=== PATIENT | female | born 1975 | race American Indian/Alaskan Native ===

== ENCOUNTER 2017-06-14 12:51 | Emergency (ER) | payer SELFPAY ==
[2017-06-14] MEDS ORDERED: NORCO 5/325 PO ONE (15:08)
--- NOTE | 2017-06-14 15:47 | XRay Report ---
FINAL REPORT PROCEDURE: XR SPINE LUMBOSACRAL 2-3V TECHNIQUE: Lumbar spine radiographs, including AP, lateral, and lumbosacral spot views. CPT 16960 HISTORY: low back pain COMPARISON: No prior studies are available for comparison. FINDINGS: Alignment: Normal. Vertebral body heights/Disk spaces: Normal. Fracture(s): None. Facets: Normal. Bone mineralization: Normal. Incidental note is made of a 6 millimeter metallic radiopaque round density in the right upper quadrant IMPRESSION: Unremarkable lumbar spine. A 6 millimeter metallic foreign body in the right upper quadrant may represent an artifact versus an ingested foreign body. Supine and upright views of abdomen are recommended for further evaluation..
--- NOTE | 2017-06-14 16:12 | Emergency Department Report ---
ED Back Pain/Injury HPI - General Chief Complaint: Back Pain/Injury Stated Complaint: BACK PAIN Time Seen by Provider: 06/14/17 14:59 Source: patient Limitations: No Limitations - History of Present Illness Initial Comments: This is a 42 y.o. female presents with low back pain radiating to right buttock that started today. Patient states she was doing situps and heard a pop and fell back. She is in the and was given ibuprofen 1800 mg once and brought to ER. She has a history of back pain from herniated disc or bulging disc. she is unsure of diagnosis but haven't had issues with back in a while. Denies numbness, tingling, discoloration, and weakness. Admits to having trouble sitting up and bearing weight to right lower extremity. MD Complaint: back pain -: This afternoon Similar Symptoms Previously: No Place: work Radiation: right leg Severity: severe Severity scale (0 -10): 8 Quality: sharp, aching Consistency: constant Improves With: medication Worsens With: movement, sitting upright, walking Context: bending (doing situps) Associated Symptoms: denies other symptoms. denies: confusion, weakness, chest pain, numbness, difficulty walking, cough, difficulty urinating, diaphoresis, incontinence, fever/chills, constipation, headaches, abdominal pain, loss of appetite, malaise, nausea/vomiting, rash, seizure, shortness of breath, syncope Treatments Prior to Arrival: NSAIDS (ibuprofen 1800 mg) - Related Data Previous Rx's Medication Instructions Recorded Last Taken Type Cyclobenzaprine HCl [Flexeril 5 MG 5 mg PO TID #20 tab 06/14/17 Unknown Rx TAB] Ibuprofen 800 mg PO Q6H PRN #30 tablet 06/14/17 Unknown Rx Allergies Allergy/AdvReac Type Severity Reaction Status Date / Time No Known Allergies Allergy Unverified 06/14/17 12:59 ED Review of Systems ROS: Stated complaint: BACK PAIN Other details as noted in HPI Constitutional: no symptoms reported, see HPI. denies: chills, diaphoresis, fever, malaise, weakness Respiratory: denies: cough, shortness of breath, wheezing Cardiovascular: denies: chest pain, palpitations Gastrointestinal: denies: abdominal pain, nausea, diarrhea Musculoskeletal: back pain (low back pain radiating to right buttock), arthralgia ED Past Medical Hx - Past Medical History Previous Medical History?: Yes Hx Asthma: Yes Additional medical history: Gallstones - Surgical History Past Surgical History?: Yes Additional Surgical History: partial hysterectomy, Tubaligation, Jaw surgery - Social History Smoking Status: Current Every Day Smoker Substance Use Type: Alcohol, Marijuana, Prescribed - Medications Home Medications: Home Medications Medication Instructions Recorded Confirmed Last Taken Type Cyclobenzaprine HCl [Flexeril 5 MG 5 mg PO TID #20 tab 06/14/17 Unknown Rx TAB] Ibuprofen 800 mg PO Q6H PRN #30 tablet 06/14/17 Unknown Rx ED Physical Exam - General Limitations: No Limitations General appearance: alert, in no apparent distress - Respiratory Respiratory exam: Present: normal lung sounds bilaterally. Absent: respiratory distress - Cardiovascular Cardiovascular Exam: Present: regular rate, normal rhythm. Absent: systolic murmur, diastolic murmur, rubs, gallop - GI/Abdominal GI/Abdominal exam: Present: soft, normal bowel sounds - Back Exam Back exam: Present: tenderness, CVA tenderness (R), CVA tenderness (L), muscle spasm, vertebral tenderness (tenderness on palpation of vertebra bilaterally, positive straight leg on right) - Neurological Exam Neurological exam: Present: alert, oriented X3 - Skin Skin exam: Present: warm, dry, intact, normal color. Absent: rash ED Course Vital Signs 06/14/17 12:59 Temperature 98.3 F Pulse Rate 89 Respiratory 16 Rate Blood Pressure 126/72 O2 Sat by Pulse 95 Oximetry ED Medical Decision Making - Radiology Data Radiology results: image reviewed L Spine Xray IMPRESSION: Unremarkable lumbar spine. A 6 millimeter metallic foreign body in the right upper quadrant may represent an artifact versus an ingested foreign body. Supine and upright views of abdomen are recommended for further evaluation.. Abdomen Xray IMPRESSION: Re-demonstration of 6 millimeter round metallic foreign body projecting over the right mid to upper abdomen. Is uncertain this is intra-abdominal or abdominal wall. Ingested foreign bodies not excluded. Lateral view of the abdomen may be of benefit for further delineating whether this is intra-abdominal or in the abdominal wall. - Medical Decision Making 42 y.o. female presents with low back pain. She heard a pop while doing situps and fell back. She took three 600 mg ibuprofen. Unremarkable lumbar spine. A 6 millimeter metallic foreign body in the right upper quadrant may represent an artifact versus an ingested foreign body. Supine and upright views of abdomen are recommended for further evaluation.. Abdomen Xray IMPRESSION: Re-demonstration of 6 millimeter round metallic foreign body projecting over the right mid to upper abdomen. Is uncertain this is intra-abdominal or abdominal wall. Ingested foreign bodies not excluded. Lateral view of the abdomen may be of benefit for further delineating whether this is intra-abdominal or in the abdominal wall. Tramadol 50 mg po once administered. Muscle spasm, started on flexeril and ibuprofen. F/U with PCP if symptoms are uncontrolled and follow-up on foreign body in abdomen with repeat scans. Critical care attestation.: If time is entered above; I have spent that time in minutes in the direct care of this critically ill patient, excluding procedure time. ED Disposition Clinical Impression: Spasm of muscle of lower back Low back pain Qualifiers: Chronicity: acute Back pain laterality: bilateral Sciatica presence: with sciatica Sciatica laterality: sciatica of right side Qualified Code(s): M54.41 - Lumbago with sciatica, right side Disposition: TO HOME OR SELFCARE Is pt being admited?: No Does the pt Need Aspirin: No Condition: Stable Instructions: Low Back Strain (ED), Lumbar Radiculopathy (ED) Additional Instructions: Low back pain responds to treatment but may take some time. Return to regular activity as tolerated is encouraged and can minimize disability. Follow up with primary care provider in 2-3 days. Prescriptions: Cyclobenzaprine HCl [Flexeril 5 MG TAB] 5 mg PO TID #20 tab Ibuprofen 800 mg PO Q6H PRN #30 tablet PRN Reason: Pain Referrals: BLADIMIR CAMPOS MD [Primary Care Provider] - 3-5 Days SMITA KNIGHT DO [Staff Physician] - 3-5 Days ABAD GASTELUM MD [Staff Physician] - 3-5 Days Forms: Work/School Release Form Time of Disposition: 18:35 Print Language: BRAZILIAN
[2017-06-14] MEDS ORDERED: ULTRAM PO ONE (16:26)
--- NOTE | 2017-06-14 18:24 | XRay Report ---
FINAL REPORT EXAM: XR ABDOMEN 2V HISTORY: metal in abdomen found on L-spine xray COMPARISON: Plain films of the lumbar spine from the same date. FINDINGS: AP views of the abdomen obtained. There is a metallic foreign body measuring 6 millimeters projecting over the right upper abdomen. It is uncertain if this is intra-abdominal or within the subcutaneous tissues of the abdominal wall. Nonobstructive bowel gas pattern. No gross pathological calcifications. IMPRESSION: Re-demonstration of 6 millimeter round metallic foreign body projecting over the right mid to upper abdomen. Is uncertain this is intra-abdominal or abdominal wall. Ingested foreign bodies not excluded. Lateral view of the abdomen may be of benefit for further delineating whether this is intra-abdominal or in the abdominal wall.
[2017-06-14 19:58] VITALS: BP 116/68
== END 2017-06-14 19:58 | disposition home or self-care (01) ==
LOC: ED 12:51
DX: M54.41 Lumbago with sciatica, right side (principal); M62.830 Muscle spasm of back; J45.909 Unspecified asthma, uncomplicated; F17.200 Nicotine dependence, unspecified, uncomplicated; F12.10 Cannabis abuse, uncomplicated; Z90.710 Acquired absence of both cervix and uterus; Z98.51 Tubal ligation status
CPT/HCPCS: 72100; 74019; 99283